=== PATIENT | female | born 1960 | race Caucasian/White ===

== ENCOUNTER 2020-09-04 13:53 | Emergency (ER) | payer BC, SELFPAY ==
[~2020-09-04] VITALS: Ht 154.9 cm; Wt 77.1 kg
[2020-09-04 13:55] VITALS: BP 183/102; Ht 154.9 cm; Wt 77.1 kg
== END 2020-09-04 16:00 | disposition home or self-care (01) ==
LOC: ED 13:53
DX: U07.1 COVID-19 (principal); I10 Essential (primary) hypertension; E11.9 Type 2 diabetes mellitus without complications
CPT/HCPCS: 82962; U0003